=== PATIENT | female | born 1930 | race Caucasian/White ===

== ENCOUNTER 2017-04-25 10:22 | Emergency (ER) | payer OTHER, MEDICARE, BC ==
[~2017-04-25] VITALS: Ht 152.4 cm; Wt 45.4 kg
[~2017-04-25 10:22] MED LIST: AMOXICILLIN500 MG PO; ANTIVERT25 MG PO; ASPIR 8181 MG PO; ASPIRIN325 MG PO; CIPRO500 MG PO; CIPROFLOXACIN500 MG PO; PREDNISONE5 MG PO; PREMARIN V0.625 MG/G VG; VITAMIN B12 IM
== END 2017-04-25 13:29 | disposition home or self-care (01) ==
LOC: ED 10:22
DX: S01.01XA Laceration without foreign body of scalp, initial encounter (principal); S00.83XA Contusion of other part of head, initial encounter; Z23 Encounter for immunization; Z88.2 Allergy status to sulfonamides; Z88.0 Allergy status to penicillin; Z88.1 Allergy status to other antibiotic agents; Z79.82 Long term (current) use of aspirin; Z79.899 Other long term (current) drug therapy; V47.9XXA Unspecified car occupant injured in collision with fixed or stationary object in traffic accident, initial encounter; Y93.89 Activity, other specified; Y92.89 Other specified places as the place of occurrence of the external cause; Y99.8 Other external cause status

== ENCOUNTER 2017-04-30 09:24 | Emergency (ER) | payer MEDICARE, BC ==
[~2017-04-30] VITALS: Ht 149.8 cm; Wt 52.2 kg
== END 2017-04-30 10:29 | disposition home or self-care (01) ==
LOC: ED 09:24
DX: S01.01XD Laceration without foreign body of scalp, subsequent encounter (principal); Z98.890 Other specified postprocedural states; Z79.82 Long term (current) use of aspirin; Z79.899 Other long term (current) drug therapy; Z88.0 Allergy status to penicillin; Z88.2 Allergy status to sulfonamides; Z88.1 Allergy status to other antibiotic agents; V49.59XD Passenger injured in collision with other motor vehicles in traffic accident, subsequent encounter

== ENCOUNTER 2017-07-29 20:53 | Inpatient (IN) | payer MEDICARE, BC ==
[~2017-07-29] VITALS: Ht 149.8 cm; Wt 46.8 kg
--- NOTE | ~2017-07-29 | CON ---
[place], [place] REPORT OF CONSULTATION NAME: FABIAN ARCHIBALD UNIT #: [id number] ROOM: 421 DOCTOR: AMANDA SMITHGUICHO BIRTHDATE: [birth year] DOS: 07/30/2017 GASTROENDOSCOPIC CONSULTATION HISTORY OF PRESENT ILLNESS: An 87-year-old patient who has presented with multiple issues among which has been abdominal pain and finding of abnormal LFTs and pancreatitis. Panel of blood work done. Her lactic acid was 1.1. CBC differential, white blood cell was 12, H and H of 13 and 40 with platelet count of 244. INR was 1.0, PT and PTT within normal limits. CPK-MB normal. Comprehensive metabolic panel: BUN 15 and creatinine 1.04, GFR greater than 60. Electrolytes were balanced. Liver function tests, GOT and GPT 380 and 270, alkaline phosphatase of 316, with bilirubin of 2.3. Troponin within normal limits. Amylase and lipase elevated, lipase of 4198 and amylase of 158 noticed. Chest x-ray, no acute consolidation identified. 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 Abnormal LFTs of course was noticed. Suspected hepatic steatosis and diverticulosis on CT scan noticed. Troponin remains normal. CBC differential normal. 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 MRCP was done, suspected to ____ gallstone was noticed. However, this report does not match the findings of pancreatitis. PAST MEDICAL HISTORY: Associated with systemic hypertension, chronic urinary tract infection, and hyperlipidemia. Hepatitis B diagnosed in 1988, untreated. History of atrial fibrillation, on aspirin. PAST SURGICAL HISTORY: Labioplasty, cataract, and ureteral repair. SOCIAL HISTORY: Nonsmoker, nonalcohol consumer. FAMILY HISTORY: Noncontributory. ALLERGIES: SULFA, PENICILLIN, AMOXICILLIN, CLAVULANIC ACID. HOME MEDICATIONS: Aspirin 325 p.r.n. apparently. We are not sure of definitive timing she has been on except the past 48 hours. REVIEW OF SYSTEMS: HEENT: Denies double vision, blurred vision. RESPIRATORY: Denies acute shortness of breath. CARDIOVASCULAR: Denies acute chest pain. DIGESTIVE SYSTEM: Abdominal pain, right upper quadrant pain. PHYSICAL EXAMINATION: VITAL SIGNS: Stable. HEENT: Head, normocephalic, nontraumatic. Mouth and buccal mucosa benign. NECK: Supple, no thyromegaly, no cervical lymphadenopathy. CHEST: Symmetric anatomy, equal expansion. No wheeze, no rhonchi. HEART: Atrial fibrillation, moderate ventricular response. No gallop, no murmur. ABDOMEN: Soft. No hepato-organomegaly. Bowel sounds present. Nonspecific [place], [place] REPORT OF CONSULTATION NAME: FABIAN ARCHIBALD UNIT #: [id number] ROOM: 421 DOCTOR: GUICHO PATEL MD BIRTHDATE: [birth year] tenderness in right upper quadrant. EXTREMITIES: No cyanosis, no pedal edema. NEUROLOGIC: Alert, oriented to time, place, and person. IMPRESSION: Abnormal liver function test with elevation of amylase and lipase with associated right upper quadrant pain with leukocytosis of 12,000, abnormal LFTs and elevation of bilirubin to two-point plus signifying possible gallstone pancreatitis or a missed choledocholithiasis or possibility of a passed gallstone pancreatitis all has to be in the differential. On the other hand, CT scan of the abdomen showed heterogeneous liver. We have to be considering old history of hepatitis B and compromising in that regard and has to be in consideration. Otherwise, history of systemic hypertension, worsening gallbladder, and basic studies otherwise as identified. PLAN AND DISCUSSION: Due to the symptomatology of the patient's right upper quadrant pain, leukocytosis, lipase of greater than 4000, and elevated amylase. All these factors signifies the importance of further investigation, going to organize an ERCP tonight to make sure we do not have missed obstructive pathology, i.e., ampullary carcinoma or otherwise. Workup in progress. Case has been discussed with the daughter and complexity of the procedure and expected ERCP has been discussed with them. Platelets are going to be reversed with platelet transfusion due to the fact that she has been on aspirin 325 mg daily and this is done due to the fact that we may need to access the common duct through papillotomy. GUICHO PATEL MD CM:CONSTR:REPORT OF CONSULTATION 1727 07/31/17 0333 interface
--- NOTE | ~2017-07-29 | O ---
[place], [place] OPERATIVE NOTE NAME: FABIAN ARCHIBALD UNIT #: [id number] ROOM: 421 DOCTOR: GUICHO PATEL MD BIRTHDATE: [birth year] DOS: 07/30/2017 INDICATIONS: The patient is an 87-year-old who has presented with a chief complaint of pancreatitis, abnormal LFTs, leukocytosis initially of 12,000, elevation of lipase at the time of admission to 4198, and amylase of 158, both elevated and abnormal liver function test. PROCEDURE: Today's procedure part of investigation is ERCP and precut papillotomy. PREMEDICATION: Propofol by Anesthesia. SCOPE: Olympus side-viewing duodenoscope. REPORT: After putting the patient in left lateral position and application of lubricant to the scope, the scope was introduced. Thereafter, under direct visualization, advanced through the length of esophagus into gastric pouch into the duodenum. A very small papilla was identified. High grade papillary stenosis has not even allowed the guidewire to be negotiated. However, with appropriate technique and maneuvers, we were able to negotiate the cannula tip to the opening and guidewire was advanced and minimal injection of dye reveals pancreatic duct, which was not dilated and within normal limit. Precut papillotomy was performed to access the common duct; however, is impractical. No common duct was accessed. Therefore, after multiple tries, the patient extubated, and tolerated the procedure well. IMPRESSION: Endoscopic retrograde cholangiopancreatography, precut papillotomy, normal pancreatic duct. PLAN AND DISCUSSION: Labs results tomorrow morning. IV hydration. Follow up daily. GUICHO PATEL MD CM:OPRECORD:OPERATIVE NOTE [id number] GUICHO PATEL MD 07/30/171921 interface
--- NOTE | ~2017-07-29 | PR ---
[place], [place] PROGRESS NOTE NAME: FABIAN ARCHIBALD UNIT #: [id number] ROOM: 421 DOCTOR: GUICHO PATEL MD BIRTHDATE: [birth year] DOS: 08/01/2017 HISTORY OF PRESENT ILLNESS: The patient has presented 87 years old with initial chief complaint of abdominal pain, abnormal liver function test and pancreatitis was suspected to have gallstone pancreatitis, underwent ERCP, precut papillotomy. Her LFTs significantly improved and today's labs shows electrolytes, potassium 3.3, has been addressed. Bilirubin from 2.3 has dropped to 1.1, GOT of 52, alkaline phosphatase dropped from 300-206 and ALT of 105, lipase has normalized. CBC differential, white blood cell 8.9, H and H of 12 and 39. Differential within normal limits. She has had a bowel movement today. The patient has had solid food lunch and has tolerated eggs and toast lunch. PAST MEDICAL HISTORY: Hypertension, hyperlipidemia, urinary tract infection, history of fibrillation all recognized. REVIEW OF SYSTEMS: HEENT: Denies double vision, blurred vision. RESPIRATORY: Denies shortness of breath. CARDIOVASCULAR: Denies chest pain. DIGESTIVE SYSTEM: No hematemesis, no hematochezia. PHYSICAL EXAMINATION: GENERAL: Frail patient. VITAL SIGNS: Stable. HEENT: Head normocephalic, nontraumatic. Mouth and buccal mucosa benign. NECK: Supple, no thyromegaly, no cervical lymphadenopathy. CHEST: Symmetric anatomy, equal expansion. No wheeze, no rhonchi. HEART: Atrial fibrillation, moderate ventricular response. ABDOMEN: Soft. No hepato-organomegaly. EXTREMITIES: Dry, warm. No distress. NEUROLOGIC: Alert and oriented. IMPRESSION: Abnormal liver function tests, gallstone pancreatitis history, status post ERCP, papillotomy history. PLAN AND DISCUSSION: Resolution of pancreatitis, improvement of LFTs noticed, work in progress. Regular diet. Activity as tolerated. Radiologic studies have been reviewed. A sonographic study of liver and MRCP all has been recognized. [place], [place] PROGRESS NOTE NAME: FABIAN ARCHIBALD UNIT #: [id number] ROOM: 421 DOCTOR: GUICHO PATEL MD BIRTHDATE: [birth year] GUICHO PATEL MD CM:ANDREY 2030 GUICHO PATEL MD 08/02/17 0124 interface
[2017-07-29 20:58] VITALS: BP 169/96
[2017-07-29 21:19] LABS: BASO % 0.2 % (0.0-1.0); EOS % 0.2 % (1.0-4.0); HEMATOCRIT 40.6 % (37.0-47.0); HEMOGLOBIN 13.3 g/dl (12.0-16.0); LYMPH # 0.5 10*3/uL (1.3-4.4); MEAN CELL VOLUME 86.2 fl (81.0-99.0); MEAN CORPUSCULAR HGB 28.2 pg (27.0-31.0); MEAN CORPUSCULAR HGB CONC 32.8 g/dl (33.0-37.0); MONO # 0.8 10*3/uL (0.1-1.0); MONO % 6.6 % (3.0-9.0); NEUT # 10.9 10*3/uL (2.3-7.9); NEUT % 87.9 % (47.0-73.0); PLATELET COUNT AUTOMATED 244 10*3/uL (130-400); RED BLOOD COUNT 4.71 10*6/uL (4.10-5.10); RED CELL DISTRI WIDTH 13.9 % (0-14.5); WHITE BLOOD COUNT 12.4 10*3/uL (4.8-10.8)
[2017-07-29 21:35] LABS: CKMB 0.8 ng/ml (0.5-3.6)
[2017-07-29 21:36] LABS: ALBUMIN 3.6 gm/dl (3.1-4.5); ALKALINE PHOSPHATASE 316 U/L (45-117); BUN 15 mg/dl (7-24); CHLORIDE 94 mmol/L (98-107); CREATININE 1.04 mg/dL (0.55-1.02); SGOT/AST 380 IU/L (3-35); SGPT/ALT 276 U/L (12-78); SODIUM 131 mmol/L (136-145); TOTAL PROTEIN 7.5 gm/dL (6.4-8.2)
[2017-07-29 21:37] LABS: TROPONIN I < 0.015 ng/ml (<0.045)
[2017-07-29 21:42] LABS: LIPASE 4198 U/L (73-393)
[2017-07-29 21:44] VITALS: BP 166/91
[2017-07-29 22:24] VITALS: BP 154/81
[2017-07-29 23:52] VITALS: BP 175/98
[2017-07-30] VITALS (13 sets, daily range): BP systolic 96–158; BP diastolic 62–98
[2017-07-30 02:05] LABS: BILIRUBIN NEGATIVE (NEGATIVE); BLOOD NEGATIVE (NEGATIVE); CLARITY CLEAR (CLEAR); COLOR YELLOW (YELLOW); GLUCOSE NEGATIVE (NEGATIVE); KETONE NEGATIVE (NEGATIVE); LEUKO ESTERASE 1+ (NEGATIVE); NITRITE NEGATIVE (NEGATIVE); PH 6.5 (5.0-9.0); SPECIFIC GRAVITY <= 1.005 (1.005-1.030)
[2017-07-30 02:10] LABS: WBC 21-30 wbc/hpf (0-5)
[2017-07-30 02:11] LABS: YEAST TRACE
[2017-07-30 06:21] LABS: ALBUMIN 2.7 gm/dl (3.1-4.5); ALKALINE PHOSPHATASE 239 U/L (45-117); BUN 11 mg/dl (7-24); CHLORIDE 103 mmol/L (98-107); CHOLESTEROL 162 mg/dL (<200); CREATININE 0.93 mg/dL (0.55-1.02); HDL CHOLESTEROL 73 mg/dl (40-60); LDL CHOLESTEROL 82 mg/dL (9-159); PHOSPHOROUS 3.5 mg/dL (2.5-4.9); POTASSIUM 4.4 mmol/L (3.5-5.1); SGOT/AST 182 IU/L (3-35); SGPT/ALT 189 U/L (12-78); SODIUM 135 mmol/L (136-145); TOTAL PROTEIN 5.9 gm/dL (6.4-8.2); TRIGLYCERIDES 36 mg/dl (<150); VLDL CHOLESTEROL 7 mg/dL (6-40)
[2017-07-30 06:39] LABS: BASO % 0.1 % (0.0-1.0); LYMPH # 0.8 10*3/uL (1.3-4.4); MEAN CORPUSCULAR HGB 27.8 pg (27.0-31.0); MEAN CORPUSCULAR HGB CONC 31.6 g/dl (33.0-37.0); MEAN PLATELET VOLUME 9.8 fl (9.6-12.3); MONO # 0.5 10*3/uL (0.1-1.0); MONO % 5.4 % (3.0-9.0); NEUT # 8.1 10*3/uL (2.3-7.9); NEUT % 85.4 % (47.0-73.0); PLATELET COUNT AUTOMATED 196 10*3/uL (130-400); RED BLOOD COUNT 3.92 10*6/uL (4.10-5.10); RED CELL DISTRI WIDTH 14.2 % (0-14.5); WHITE BLOOD COUNT 9.5 10*3/uL (4.8-10.8)
[2017-07-30 06:43] LABS: HEMATOCRIT 34.5 % (37.0-47.0); HEMOGLOBIN 10.9 g/dl (12.0-16.0)
[2017-07-30 08:31] LABS: VITAMIN D, 25-HYDROXY 17.1 ng/mL (30-100)
[2017-07-31] VITALS: BP 130/70
[2017-07-31 06:11] LABS: ALBUMIN 2.7 gm/dl (3.1-4.5); BILIRUBIN, DIRECT 1.3 mg/dL (0.0-0.2); CREATININE 1.07 mg/dL (0.55-1.02); POTASSIUM 4.3 mmol/L (3.5-5.1)
[2017-07-31 06:12] LABS: HEPATITIS B SURFACE AG Negative (Negative); HEPATITIS C VIRUS ANTIBODY <0.1 s/co (0.0-0.9)
[2017-07-31 06:31] LABS: BASO % 0.2 % (0.0-1.0); HEMATOCRIT 34.8 % (37.0-47.0); LYMPH # 0.6 10*3/uL (1.3-4.4); LYMPH % 10.6 % (27.0-41.0); MEAN CELL VOLUME 88.8 fl (81.0-99.0); MEAN CORPUSCULAR HGB 28.1 pg (27.0-31.0); MEAN CORPUSCULAR HGB CONC 31.6 g/dl (33.0-37.0); MEAN PLATELET VOLUME 10.3 fl (9.6-12.3); MONO # 0.3 10*3/uL (0.1-1.0); MONO % 4.9 % (3.0-9.0); NEUT # 4.4 10*3/uL (2.3-7.9); NEUT % 83.3 % (47.0-73.0); RED BLOOD COUNT 3.92 10*6/uL (4.10-5.10); RED CELL DISTRI WIDTH 14.8 % (0-14.5); WHITE BLOOD COUNT 5.3 10*3/uL (4.8-10.8)
[2017-07-31 06:33] LABS: PLATELET COUNT AUTOMATED 261 10*3/uL (130-400)
[2017-07-31 08:00] VITALS: BP 156/60
[2017-07-31 12:00] VITALS: BP 148/79
[2017-07-31 16:00] VITALS: BP 150/69
[2017-07-31 20:00] VITALS: BP 152/69
[2017-08-01] VITALS (7 sets, daily range): BP systolic 140–186; BP diastolic 74–92
[2017-08-01 06:19] LABS: BASO # 0.1 10*3/uL (0.0-0.1); BASO % 0.6 % (0.0-1.0); EOS % 0.3 % (1.0-4.0); HEMATOCRIT 39.1 % (37.0-47.0); HEMOGLOBIN 12.5 g/dl (12.0-16.0); LYMPH # 1.2 10*3/uL (1.3-4.4); LYMPH % 13.1 % (27.0-41.0); MEAN CELL VOLUME 88.3 fl (81.0-99.0); MEAN CORPUSCULAR HGB 28.2 pg (27.0-31.0); MEAN PLATELET VOLUME 9.7 fl (9.6-12.3); MONO # 0.6 10*3/uL (0.1-1.0); MONO % 6.9 % (3.0-9.0); NEUT % 77.8 % (47.0-73.0); PLATELET COUNT AUTOMATED 324 10*3/uL (130-400); RED BLOOD COUNT 4.43 10*6/uL (4.10-5.10); RED CELL DISTRI WIDTH 14.7 % (0-14.5); WHITE BLOOD COUNT 8.9 10*3/uL (4.8-10.8)
[2017-08-01 06:29] LABS: ALBUMIN 2.9 gm/dl (3.1-4.5); CREATININE 1.11 mg/dL (0.55-1.02); TOTAL PROTEIN 6.6 gm/dL (6.4-8.2)
[2017-08-01 06:47] LABS: POTASSIUM 3.3 mmol/L (3.5-5.1)
[2017-08-02] VITALS (8 sets, daily range): BP systolic 107–162; BP diastolic 74–102
[2017-08-02 06:54] LABS: BASO # 0.1 10*3/uL (0.0-0.1); BASO % 0.9 % (0.0-1.0); EOS % 0.5 % (1.0-4.0); HEMATOCRIT 38.5 % (37.0-47.0); HEMOGLOBIN 12.4 g/dl (12.0-16.0); LYMPH # 1.2 10*3/uL (1.3-4.4); LYMPH % 15.4 % (27.0-41.0); MEAN CELL VOLUME 87.1 fl (81.0-99.0); MEAN CORPUSCULAR HGB 28.1 pg (27.0-31.0); MEAN CORPUSCULAR HGB CONC 32.2 g/dl (33.0-37.0); MEAN PLATELET VOLUME 9.6 fl (9.6-12.3); MONO # 0.6 10*3/uL (0.1-1.0); NEUT # 5.9 10*3/uL (2.3-7.9); NEUT % 74.3 % (47.0-73.0); PLATELET COUNT AUTOMATED 313 10*3/uL (130-400); RED BLOOD COUNT 4.42 10*6/uL (4.10-5.10); WHITE BLOOD COUNT 7.9 10*3/uL (4.8-10.8)
[2017-08-02 07:24] LABS: CHLORIDE 104 mmol/L (98-107); POTASSIUM 4.1 mmol/L (3.5-5.1); SODIUM 139 mmol/L (136-145)
[2017-08-02 07:47] LABS: ALKALINE PHOSPHATASE 179 U/L (45-117); BUN 10 mg/dl (7-24); CREATININE 0.96 mg/dL (0.55-1.02); LIPASE 158 U/L (73-393); PHOSPHOROUS 1.9 mg/dL (2.5-4.9); SGOT/AST 38 IU/L (3-35); SGPT/ALT 80 U/L (12-78); TOTAL PROTEIN 6.5 gm/dL (6.4-8.2)
[2017-08-03 00:17] VITALS: BP 128/72
[2017-08-03 08:00] VITALS: BP 154/85
[2017-08-03 08:01] LABS: BASO # 0.1 10*3/uL (0.0-0.1); BASO % 0.6 % (0.0-1.0); EOS # 0.1 10*3/uL (0.0-0.4); EOS % 1.5 % (1.0-4.0); HEMATOCRIT 38.3 % (37.0-47.0); HEMOGLOBIN 12.4 g/dl (12.0-16.0); LYMPH # 1.5 10*3/uL (1.3-4.4); LYMPH % 18.1 % (27.0-41.0); MEAN CELL VOLUME 86.7 fl (81.0-99.0); MEAN CORPUSCULAR HGB 28.1 pg (27.0-31.0); MEAN CORPUSCULAR HGB CONC 32.4 g/dl (33.0-37.0); MEAN PLATELET VOLUME 9.3 fl (9.6-12.3); MONO # 0.6 10*3/uL (0.1-1.0); MONO % 7.8 % (3.0-9.0); NEUT # 5.9 10*3/uL (2.3-7.9); NEUT % 71.5 % (47.0-73.0); PLATELET COUNT AUTOMATED 299 10*3/uL (130-400); RED BLOOD COUNT 4.42 10*6/uL (4.10-5.10); RED CELL DISTRI WIDTH 14.6 % (0-14.5); WHITE BLOOD COUNT 8.2 10*3/uL (4.8-10.8)
[2017-08-03 08:21] LABS: ALBUMIN 2.9 gm/dl (3.1-4.5); ALKALINE PHOSPHATASE 156 U/L (45-117); BUN 11 mg/dl (7-24); CHLORIDE 106 mmol/L (98-107); CREATININE 0.94 mg/dL (0.55-1.02); PHOSPHOROUS 3.2 mg/dL (2.5-4.9); POTASSIUM 4.1 mmol/L (3.5-5.1); SGOT/AST 25 IU/L (3-35); SGPT/ALT 62 U/L (12-78); SODIUM 140 mmol/L (136-145); TOTAL PROTEIN 6.3 gm/dL (6.4-8.2)
[2017-08-03] MEDS ORDERED: VITAMIN D-32000 UNIT PO (09:58)
[2017-08-03] MEDS ORDERED: CALCIUM CARBON200 MG PO (09:58)
[2017-08-03] MEDS ORDERED: LISINOPRIL10 M1 PO (09:58)
[2017-08-03] MEDS ORDERED: CEFUROXIME AXE250 MG PO (09:59)
[2017-08-03 12:00] VITALS: BP 153/89
== END 2017-08-03 15:10 | disposition home or self-care (01) | DRG 871 ==
LOC: ED 20:53 → 4E 07-30 01:02 → EDHOLD 07-30 01:02 → 4E 07-30 01:31
PROVIDERS: Emergency Medicine; Family Medicine; Internal Medicine Hospice and Palliative Medicine; Registered Nurse; Student in an Organized Health Care Education/Training Program
PROC: 0FJD8ZZ Inspection of Pancreatic Duct, Via Natural or Artificial Opening Endoscopic (ICD-10-PCS; principal; 2017-07-30)
PROC: 0F798ZZ Dilation of Common Bile Duct, Via Natural or Artificial Opening Endoscopic (ICD-10-PCS; principal; 2017-07-30)
DX: A41.9 Sepsis, unspecified organism (principal); K85.90 Acute pancreatitis without necrosis or infection, unspecified; E87.1 Hypo-osmolality and hyponatremia; E44.1 Mild protein-calorie malnutrition; I48.0 Paroxysmal atrial fibrillation; N18.3 Chronic kidney disease, stage 3 (moderate); E87.8 Other disorders of electrolyte and fluid balance, not elsewhere classified; B19.10 Unspecified viral hepatitis B without hepatic coma; N39.0 Urinary tract infection, site not specified; K80.80 Other cholelithiasis without obstruction; D64.9 Anemia, unspecified; K82.8 Other specified diseases of gallbladder; R74.0 Nonspecific elevation of levels of transaminase and lactic acid dehydrogenase [LDH]; D72.810 Lymphocytopenia; R65.20 Severe sepsis without septic shock; I10 Essential (primary) hypertension; E78.5 Hyperlipidemia, unspecified; E55.9 Vitamin D deficiency, unspecified; I12.9 Hypertensive chronic kidney disease with stage 1 through stage 4 chronic kidney disease, or unspecified chronic kidney disease; K57.30 Diverticulosis of large intestine without perforation or abscess without bleeding; K76.0 Fatty (change of) liver, not elsewhere classified; Z87.440 Personal history of urinary (tract) infections; Z88.1 Allergy status to other antibiotic agents; Z88.0 Allergy status to penicillin; Z88.2 Allergy status to sulfonamides; Z83.6 Family history of other diseases of the respiratory system; Z79.82 Long term (current) use of aspirin; Z68.20 Body mass index [BMI] 20.0-20.9, adult

== ENCOUNTER 2018-03-19 18:14 | Inpatient (IN) | payer MEDICARE, BC ==
[~2018-03-19] VITALS: Ht 144.8 cm; Wt 39.1 kg
--- NOTE | ~2018-03-19 | EKG ---
[place], [place] ELECTROCARDIOGRAM REPORT NAME: FABIAN ARCHIBALD UNIT #: [id number] ROOM: 503 DOCTOR: BRITTNEE DRAFT REPORT BIRTHDATE: [birth year] [facility] Test Date: 2018-03-19 Test Time: 19:40:43 Pat Name: FABIAN ARCHIBALD Department: Room: 503 Gender: F Dietary Worker: Tabby Crawley : 1930 Requested By: SYEDA SARAH Order Number: [id number] Reading MD: Jeff Fraser MD Measurements Intervals [place] Rate: 96 P: 40 PA: 126 QRS: 23 QRSD: 72 T: 3 QT: 351 QTc: 444 Interpretive Statements Sinus rhythm Electronically Signed On 03-20-2018 14:49:50 PST by Jeff Fraser MD CM:EKGRPT:ELECTROCARDIOGRAM REPORT [id number] SYEDA BARTON DRAFT REPORT SYEDA SARAH DO
[~2018-03-19 18:14] MED LIST changes: +CALCIUM CARBON200 MG PO; +CEFUROXIME AXE250 MG PO; +LISINOPRIL10 M1 PO; +VITAMIN D-32000 UNIT PO
[2018-03-19 18:18] VITALS: BP 171/92
[2018-03-19 18:49] LABS: BASO % 0.5 % (0.0-1.0); EOS % 0.2 % (1.0-4.0); HEMATOCRIT 36.9 % (37.0-47.0); HEMOGLOBIN 12.1 g/dl (12.0-16.0); LYMPH # 1.3 10*3/uL (1.3-4.4); LYMPH % 14.8 % (27.0-41.0); MEAN CELL VOLUME 85.2 fl (81.0-99.0); MEAN CORPUSCULAR HGB 27.9 pg (27.0-31.0); MEAN CORPUSCULAR HGB CONC 32.8 g/dl (33.0-37.0); MEAN PLATELET VOLUME 8.4 fl (9.6-12.3); MONO # 0.7 10*3/uL (0.1-1.0); MONO % 8.6 % (3.0-9.0); NEUT # 6.4 10*3/uL (2.3-7.9); NEUT % 75.4 % (47.0-73.0); PLATELET COUNT AUTOMATED 361 10*3/uL (130-400); RED BLOOD COUNT 4.33 10*6/uL (4.10-5.10); WHITE BLOOD COUNT 8.5 10*3/uL (4.8-10.8)
[2018-03-19 19:04] LABS: BILIRUBIN NEGATIVE (NEGATIVE); BLOOD NEGATIVE (NEGATIVE); CLARITY CLEAR (CLEAR); COLOR YELLOW (YELLOW); GLUCOSE NEGATIVE (NEGATIVE); KETONE NEGATIVE (NEGATIVE); LEUKO ESTERASE TRACE (NEGATIVE); NITRITE NEGATIVE (NEGATIVE); UROBILINOGEN 0.2 E.U./dl (0.2-1.0)
[2018-03-19 19:05] LABS: ALBUMIN 2.6 gm/dl (3.1-4.5); CREATININE 1.26 mg/dL (0.55-1.02); POTASSIUM 3.9 mmol/L (3.5-5.1); TOTAL PROTEIN 7.7 gm/dL (6.4-8.2)
[2018-03-19 19:10] LABS: BACTERIA 2+; FINE GRANULAR CAST 0-2
[2018-03-19 19:23] VITALS: BP 154/93
[2018-03-19 21:16] VITALS: BP 156/93
[2018-03-19 21:57] VITALS: BP 160/90
--- NOTE | 2018-03-19 21:57 | NUR ---
A 87, admitted to 5E, under the services of DONY Coker DO with a diagnosis of HYPONATREMIA, ABDOMINA PAIN, DEHYDRATION. Chief complaint is ABDOMINAL PAIN. Patient arrived via bed from ER. Monitor applied. Initial assessment completed. Vital signs taken and recorded. DONY COKRE DO notified of admission to the unit. Orders received. See assessment for past medical history, medications and allergies. Patient and/or family oriented to unit. [facility] visitation policy reviewed. Clothing/patient valuable form completed. DEBORA CONTEH
--- NOTE | 2018-03-19 22:29 | NUR ---
PATIENT STATES THAT SHE TAKES NO HOME MEDICATIONS.
[2018-03-20] VITALS: BP 158/86
--- NOTE | 2018-03-20 02:52 | NUR ---
PATIENT RESTING IN BED WITH EYES CLOSED. RESPIRATIONS ARE EASY AND REGULAR. NO DISTRESS IS NOTED. CALL LIGHT IS WITHIN REACH. WILL CONTINUE TO MONITOR.
[2018-03-20 06:42] LABS: BASO % 0.5 % (0.0-1.0); EOS % 0.1 % (1.0-4.0); HEMATOCRIT 33.7 % (37.0-47.0); HEMOGLOBIN 11.1 g/dl (12.0-16.0); LYMPH # 0.8 10*3/uL (1.3-4.4); LYMPH % 10.7 % (27.0-41.0); MEAN CELL VOLUME 85.3 fl (81.0-99.0); MEAN CORPUSCULAR HGB 28.1 pg (27.0-31.0); MEAN CORPUSCULAR HGB CONC 32.9 g/dl (33.0-37.0); MEAN PLATELET VOLUME 8.6 fl (9.6-12.3); MONO # 0.6 10*3/uL (0.1-1.0); MONO % 8.3 % (3.0-9.0); NEUT # 6.1 10*3/uL (2.3-7.9); NEUT % 79.6 % (47.0-73.0); PLATELET COUNT AUTOMATED 311 10*3/uL (130-400); RED BLOOD COUNT 3.95 10*6/uL (4.10-5.10); WHITE BLOOD COUNT 7.7 10*3/uL (4.8-10.8)
--- NOTE | 2018-03-20 07:10 | NUR ---
BEDSIDE REPORT OBTAINED FROM FRANK-ANDRA. PATIENT APPEARS TO BE ASLEEP, EYES CLOSED. NO S&S OF DISTRESS NOTED, RESP ARE ERND ON ROOM AIR. BED IS LOCKED IN LOWEST POSITION. CALL LIGHT LEFT WITHIN REACH.
[2018-03-20 07:13] LABS: ALBUMIN 2.1 gm/dl (3.1-4.5); ALKALINE PHOSPHATASE 109 U/L (45-117); BUN 11 mg/dl (7-24); CHLORIDE 105 mmol/L (98-107); CHOLESTEROL 148 mg/dL (<200); CREATININE 0.98 mg/dL (0.55-1.02); HDL CHOLESTEROL 46 mg/dl (40-60); LDL CHOLESTEROL 91 mg/dL (9-159); PHOSPHOROUS 3.1 mg/dL (2.5-4.9); POTASSIUM 3.9 mmol/L (3.5-5.1); SGOT/AST 14 IU/L (3-35); SGPT/ALT 15 U/L (12-78); SODIUM 137 mmol/L (136-145); TOTAL PROTEIN 6.2 gm/dL (6.4-8.2); TRIGLYCERIDES 54 mg/dl (<150); VLDL CHOLESTEROL 11 mg/dL (6-40)
[2018-03-20 07:19] LABS: FREE T4 1.27 ng/dl (0.76-1.46)
--- NOTE | 2018-03-20 07:35 | NUR ---
INFOMRED THIS NURSE THAT HE HAD ALREADY CONSULTED/TALKED AND THAT HE DID NOT NEED TO BE CALLED BY US
[2018-03-20 07:54] LABS: VITAMIN D, 25-HYDROXY 18.3 ng/mL (30-100)
[2018-03-20 08:00] VITALS: BP 150/86
--- NOTE | 2018-03-20 08:00 | NUR ---
Hep Lock discontinued, RIGHT WRIST. Site symptomatic, PULLED OUT BY PATIENT. Pressure applied. Sterile dressing applied. DMITRIY STANLEY
--- NOTE | 2018-03-20 08:05 | NUR ---
IV started left hand with #22 angiocath after 0 attempts. The IV site was prepped with Chloraprep. Heparin lock attached. Sterile dressing applied. Patient tolerated precedure well. Procedure performed according to [facility] policy & procedure. DMITRIY STANLEY
[2018-03-20 12:00] VITALS: BP 127/72
[2018-03-20] MEDS ORDERED: ZOFRAN4 MG PO (15:17)
[2018-03-20 16:00] VITALS: BP 131/75
--- NOTE | 2018-03-20 17:55 | NUR ---
Discharge instructions reviewed with patient. Patient receptive and verbalizes understanding. Follow-up care TO BE arranged BY PATIENT. Written instructions given to patient. IV CATHETER RMOVED FROM LEFT HAND. DMITRIY STANLEY
== END 2018-03-20 17:55 | disposition home or self-care (01) | DRG 444 ==
LOC: ED 18:14 → EDHOLD 21:00 → 5E 21:25
PROVIDERS: Emergency Medicine; Internal Medicine; Student in an Organized Health Care Education/Training Program; ADMIT Internal Medicine
DX: K82.8 Other specified diseases of gallbladder (principal); E43 Unspecified severe protein-calorie malnutrition; N17.0 Acute kidney failure with tubular necrosis; E87.1 Hypo-osmolality and hyponatremia; E86.0 Dehydration; K57.30 Diverticulosis of large intestine without perforation or abscess without bleeding; I12.9 Hypertensive chronic kidney disease with stage 1 through stage 4 chronic kidney disease, or unspecified chronic kidney disease; I48.0 Paroxysmal atrial fibrillation; N18.3 Chronic kidney disease, stage 3 (moderate); E78.2 Mixed hyperlipidemia; K76.0 Fatty (change of) liver, not elsewhere classified; R73.03 Prediabetes; E53.8 Deficiency of other specified B group vitamins; R74.8 Abnormal levels of other serum enzymes; Z88.0 Allergy status to penicillin; Z68.1 Body mass index [BMI] 19.9 or less, adult; Z88.2 Allergy status to sulfonamides; Z88.1 Allergy status to other antibiotic agents; Z88.8 Allergy status to other drugs, medicaments and biological substances; Z98.42 Cataract extraction status, left eye; Z98.41 Cataract extraction status, right eye; Z82.5 Family history of asthma and other chronic lower respiratory diseases; Z79.82 Long term (current) use of aspirin; Z79.899 Other long term (current) drug therapy

== ENCOUNTER → 2018-04-04 | Outpatient (CLI) | payer MEDICARE, BC ==
[~2018-04-04] MED LIST changes: +ZOFRAN4 MG PO
== END | disposition home or self-care (01) ==
LOC: US 10:06
DX: K82.8 Other specified diseases of gallbladder (principal); R11.0 Nausea

== ENCOUNTER 2020-06-23 15:30 | Inpatient (IN) | payer MEDICARE, BC ==
[~2020-06-23] VITALS: Ht 144.7 cm; Wt 31.3 kg
[2020-06-23 15:30] VITALS: BP 107/64
[2020-06-23 16:24] LABS: ALKALINE PHOSPHATASE 71 U/L (45-117); BUN 37 mg/dl (7-24); CHLORIDE 110 mmol/L (98-107); CPK 129 U/L (26-192); CREATININE 1.57 mg/dL (0.55-1.02); POTASSIUM 4.2 mmol/L (3.5-5.1); SGOT/AST 21 IU/L (3-35); SGPT/ALT 21 U/L (12-78); SODIUM 142 mmol/L (136-145); TOTAL PROTEIN 6.5 gm/dL (6.4-8.2)
[2020-06-23 16:25] LABS: TROPONIN I < 0.015 ng/ml (<0.045)
[2020-06-23 16:29] LABS: ACT PARTIAL THROMBO TIME 26.8 SECONDS (20.0-32.1); INTERNATIONAL NORM RATIO 1.1 (2.0-3.5)
[2020-06-23 16:53] LABS: BILIRUBIN Negative (Negative); BLOOD Trace-Intact (Negative); CLARITY Turbid (Clear); COLOR Yellow (Yellow); GLUCOSE Negative (Negative); KETONE Negative (Negative); LEUKO ESTERASE 3+ (Negative); NITRITE Negative (Negative)
[2020-06-23 16:57] LABS: HEMATOCRIT 24.1 % (37.0-47.0); MEAN CELL VOLUME 125.5 fl (81.0-99.0); MEAN CORPUSCULAR HGB 40.6 pg (27.0-31.0); MEAN CORPUSCULAR HGB CONC 32.4 g/dl (33.0-37.0); MEAN PLATELET VOLUME 10.1 fl (9.6-12.3); RED BLOOD COUNT 1.92 10*6/uL (4.10-5.10); RED CELL DISTRI WIDTH 17.2 % (0-14.5); WHITE BLOOD COUNT 3.8 10*3/uL (4.8-10.8)
[2020-06-23 17:17] LABS: TOTAL CELLS COUNTED 100 #CELLS
[2020-06-23 17:19] LABS: PLATELET SUFFICIENCY NORMAL (NORMAL); SCHISTOCYTES FEW
[2020-06-23 17:21] LABS: PLATELET COUNT AUTOMATED 144 10*3/uL (130-400)
[2020-06-23 17:21] LABS: PH 8.5 (4.5-8.0)
[2020-06-23 17:28] LABS: BACTERIA 4+; EPITHELIAL CELLS 0-2; MUCOUS TRACE; RBC 0-2 rbc/hpf (0-2)
[2020-06-23 18:14] VITALS: BP 118/63
[2020-06-23 19:45] VITALS: BP 110/60
[2020-06-23 22:45] VITALS: BP 129/81
[2020-06-24 07:55] LABS: HEMATOCRIT 22.3 % (37.0-47.0); MEAN CELL VOLUME 125.3 fl (81.0-99.0); MEAN CORPUSCULAR HGB CONC 32.7 g/dl (33.0-37.0); MEAN PLATELET VOLUME 9.7 fl (9.6-12.3); PLATELET COUNT AUTOMATED 149 10*3/uL (130-400); RED BLOOD COUNT 1.78 10*6/uL (4.10-5.10); RED CELL DISTRI WIDTH 17.1 % (0-14.5); WHITE BLOOD COUNT 4.2 10*3/uL (4.8-10.8)
[2020-06-24 08:00] VITALS: BP 104/59
[2020-06-24 08:06] LABS: ACT PARTIAL THROMBO TIME 27.4 SECONDS (20.0-32.1); INTERNATIONAL NORM RATIO 1.2 (2.0-3.5)
[2020-06-24 08:14] LABS: ALBUMIN 2.5 gm/dl (3.1-4.5); CREATININE 1.41 mg/dL (0.55-1.02); TOTAL PROTEIN 5.6 gm/dL (6.4-8.2)
[2020-06-24 08:18] LABS: POTASSIUM 5.4 mmol/L (3.5-5.1)
[2020-06-24 08:52] LABS: TOTAL CELLS COUNTED 100 #CELLS
[2020-06-24 08:53] LABS: OVALOCYTES FEW; PLATELET SUFFICIENCY NORMAL (NORMAL); ROULEAUX SLIGHT; SCHISTOCYTES FEW
[2020-06-24 12:00] VITALS: BP 110/60
[2020-06-24 16:00] VITALS: BP 127/76
[2020-06-25] VITALS: BP 114/69
[2020-06-25 08:00] VITALS: BP 116/77
[2020-06-25 16:00] VITALS: BP 113/56
[2020-06-25 20:28] VITALS: BP 114/91
[2020-06-26] VITALS: BP 106/60
[2020-06-26 06:12] LABS: CREATININE 1.3 mg/dL (0.55-1.02); TOTAL PROTEIN 6.2 gm/dL (6.4-8.2)
[2020-06-26 06:34] LABS: HEMATOCRIT 26.5 % (37.0-47.0); MEAN CELL VOLUME 123.8 fl (81.0-99.0); MEAN CORPUSCULAR HGB 41.6 pg (27.0-31.0); MEAN CORPUSCULAR HGB CONC 33.6 g/dl (33.0-37.0); MEAN PLATELET VOLUME 9.9 fl (9.6-12.3); NUCLEATED RED BLOOD CELL 0.5 % (0.0-0.0); RED BLOOD COUNT 2.14 10*6/uL (4.10-5.10); RED CELL DISTRI WIDTH 16.5 % (0-14.5); WHITE BLOOD COUNT 5.6 10*3/uL (4.8-10.8)
[2020-06-26 06:36] LABS: PLATELET COUNT AUTOMATED 225 10*3/uL (130-400)
[2020-06-26 06:55] LABS: POTASSIUM 3.5 mmol/L (3.5-5.1)
[2020-06-26 07:37] LABS: TOTAL CELLS COUNTED 100 #CELLS
[2020-06-26 07:38] LABS: BURR CELLS FEW; OVALOCYTES FEW; PLATELET SUFFICIENCY NORMAL (NORMAL); ROULEAUX SLIGHT; SCHISTOCYTES FEW
[2020-06-26 08:00] VITALS: BP 144/75
[2020-06-26 16:00] VITALS: BP 112/75
[2020-06-26 20:00] VITALS: BP 97/54
[2020-06-27] VITALS: BP 98/54
[2020-06-27 05:55] LABS: ALBUMIN 2.5 gm/dl (3.1-4.5); ALKALINE PHOSPHATASE 56 U/L (45-117); BUN 41 mg/dl (7-24); CHLORIDE 109 mmol/L (98-107); CREATININE 1.02 mg/dL (0.55-1.02); LDH 255 U/L (84-246); POTASSIUM 3.2 mmol/L (3.5-5.1); SGOT/AST 29 IU/L (3-35); SGPT/ALT 23 U/L (12-78); SODIUM 143 mmol/L (136-145); TOTAL PROTEIN 5.4 gm/dL (6.4-8.2)
[2020-06-27 05:58] LABS: CPK 157 U/L (26-192)
[2020-06-27 06:23] LABS: MEAN CELL VOLUME 122.2 fl (81.0-99.0); MEAN CORPUSCULAR HGB 41.1 pg (27.0-31.0); MEAN CORPUSCULAR HGB CONC 33.6 g/dl (33.0-37.0); MEAN PLATELET VOLUME 9.8 fl (9.6-12.3); PLATELET COUNT AUTOMATED 162 10*3/uL (130-400); RED CELL DISTRI WIDTH 16.3 % (0-14.5); WHITE BLOOD COUNT 2.5 10*3/uL (4.8-10.8)
[2020-06-27 06:57] LABS: BASOPHILS 1 % (0-1); TOTAL CELLS COUNTED 100 #CELLS
[2020-06-27 06:58] LABS: OVALOCYTES FEW; PLATELET SUFFICIENCY NORMAL (NORMAL); ROULEAUX SLIGHT
[2020-06-27 08:00] VITALS: BP 142/68
[2020-06-27 12:00] VITALS: BP 123/83
[2020-06-27 16:00] VITALS: BP 132/68
[2020-06-27 20:00] VITALS: BP 119/58
[2020-06-28] VITALS: BP 130/67
[2020-06-28 06:48] LABS: HEMATOCRIT 24.7 % (37.0-47.0); MEAN CELL VOLUME 124.1 fl (81.0-99.0); MEAN CORPUSCULAR HGB 41.2 pg (27.0-31.0); MEAN CORPUSCULAR HGB CONC 33.2 g/dl (33.0-37.0); MEAN PLATELET VOLUME 9.9 fl (9.6-12.3); PLATELET COUNT AUTOMATED 155 10*3/uL (130-400); RED BLOOD COUNT 1.99 10*6/uL (4.10-5.10); RED CELL DISTRI WIDTH 16.6 % (0-14.5); WHITE BLOOD COUNT 2.6 10*3/uL (4.8-10.8)
[2020-06-28 06:52] LABS: BUN 31 mg/dl (7-24); CREATININE 0.79 mg/dL (0.55-1.02); POTASSIUM 4.3 mmol/L (3.5-5.1); SODIUM 144 mmol/L (136-145)
[2020-06-28 06:54] LABS: CHLORIDE 111 mmol/L (98-107)
[2020-06-28 07:47] LABS: BASOPHILS 2 % (0-1); PLATELET SUFFICIENCY NORMAL (NORMAL); POLYCHROMASIA SLIGHT; SCHISTOCYTES FEW; TOTAL CELLS COUNTED 100 #CELLS
[2020-06-28 08:00] VITALS: BP 106/68
[2020-06-28 16:00] VITALS: BP 144/79
[2020-06-28 20:00] VITALS: BP 94/53
[2020-06-29] VITALS: BP 110/63
[2020-06-29 06:23] LABS: BUN 34 mg/dl (7-24); CHLORIDE 106 mmol/L (98-107); CREATININE 0.83 mg/dL (0.55-1.02); POTASSIUM 3.9 mmol/L (3.5-5.1); SODIUM 141 mmol/L (136-145)
[2020-06-29 06:27] LABS: HEMATOCRIT 26.6 % (37.0-47.0); MEAN CELL VOLUME 122.6 fl (81.0-99.0); MEAN CORPUSCULAR HGB CONC 33.5 g/dl (33.0-37.0); MEAN PLATELET VOLUME 9.8 fl (9.6-12.3); PLATELET COUNT AUTOMATED 181 10*3/uL (130-400); RED BLOOD COUNT 2.17 10*6/uL (4.10-5.10); RED CELL DISTRI WIDTH 16.3 % (0-14.5)
[2020-06-29 06:56] LABS: OVALOCYTES FEW; PLATELET SUFFICIENCY NORMAL (NORMAL); ROULEAUX SLIGHT; TOTAL CELLS COUNTED 100 #CELLS
[2020-06-29 08:00] VITALS: BP 106/66
[2020-06-29 12:00] VITALS: BP 101/73
[2020-06-29 16:00] VITALS: BP 144/52
[2020-06-29 20:00] VITALS: BP 139/54
[2020-06-30] VITALS: BP 101/61
[2020-06-30 05:43] LABS: BUN 30 mg/dl (7-24); CHLORIDE 108 mmol/L (98-107); CREATININE 0.71 mg/dL (0.55-1.02); POTASSIUM 3.8 mmol/L (3.5-5.1); SODIUM 141 mmol/L (136-145)
[2020-06-30 06:05] LABS: HEMATOCRIT 23.9 % (37.0-47.0); MEAN CELL VOLUME 121.3 fl (81.0-99.0); MEAN CORPUSCULAR HGB 40.6 pg (27.0-31.0); MEAN CORPUSCULAR HGB CONC 33.5 g/dl (33.0-37.0); MEAN PLATELET VOLUME 10.1 fl (9.6-12.3); PLATELET COUNT AUTOMATED 142 10*3/uL (130-400); RED BLOOD COUNT 1.97 10*6/uL (4.10-5.10); RED CELL DISTRI WIDTH 16.6 % (0-14.5); WHITE BLOOD COUNT 4.4 10*3/uL (4.8-10.8)
[2020-06-30 07:18] LABS: TOTAL CELLS COUNTED 100 #CELLS
[2020-06-30 07:19] LABS: OVALOCYTES FEW; PLATELET SUFFICIENCY NORMAL (NORMAL); ROULEAUX SLIGHT
[2020-06-30 08:00] VITALS: BP 106/62
[2020-06-30 12:00] VITALS: BP 111/58
[2020-06-30 16:00] VITALS: BP 97/68
[2020-06-30 20:00] VITALS: BP 116/66
[2020-07-01] VITALS: BP 139/72
[2020-07-01 08:00] VITALS: BP 116/64
[2020-07-01 11:11] LABS: HEMATOCRIT 27.4 % (37.0-47.0); MEAN CELL VOLUME 122.9 fl (81.0-99.0); MEAN CORPUSCULAR HGB 40.8 pg (27.0-31.0); MEAN CORPUSCULAR HGB CONC 33.2 g/dl (33.0-37.0); MEAN PLATELET VOLUME 9.8 fl (9.6-12.3); PLATELET COUNT AUTOMATED 154 10*3/uL (130-400); RED BLOOD COUNT 2.23 10*6/uL (4.10-5.10); RED CELL DISTRI WIDTH 17.1 % (0-14.5); WHITE BLOOD COUNT 4.9 10*3/uL (4.8-10.8)
[2020-07-01 11:30] LABS: OVALOCYTES FEW; PLATELET SUFFICIENCY NORMAL (NORMAL); SCHISTOCYTES FEW; TOTAL CELLS COUNTED 100 #CELLS
[2020-07-01 12:00] VITALS: BP 97/70
[2020-07-01] MEDS ORDERED: VENT7GM INH (12:58)
[2020-07-01] MEDS ORDERED: LEVOFLOXACIN750 M2 PO (12:58)
[2020-07-01 13:00] VITALS: BP 102/66
[2020-07-01 16:00] VITALS: BP 114/80
[2020-07-01 20:00] VITALS: BP 105/52
[2020-07-02] VITALS: BP 103/59
[2020-07-02 12:00] VITALS: BP 117/69
[2020-07-02 16:00] VITALS: BP 121/64
== END 2020-07-02 16:25 | DRG 871 ==
LOC: ED 15:30 → 4E 20:22 → EDHOLD 20:22 → 4E 21:19
PROVIDERS: Counselor Professional; Emergency Medicine; Family Medicine; Hospitalist; Internal Medicine; Student in an Organized Health Care Education/Training Program; ADMIT Internal Medicine; ATTEND Internal Medicine
PROC: 0HBRXZZ Excision of Toe Nail, External Approach (ICD-10-PCS; principal; 2020-06-24)
PROC: 0HBRXZZ Excision of Toe Nail, External Approach (ICD-10-PCS; 2020-06-24)
PROC: 0HBRXZZ Excision of Toe Nail, External Approach (ICD-10-PCS; 2020-06-24)
PROC: 0HBRXZZ Excision of Toe Nail, External Approach (ICD-10-PCS; 2020-06-24)
PROC: 0HBRXZZ Excision of Toe Nail, External Approach (ICD-10-PCS; 2020-06-24)
PROC: 0HBRXZZ Excision of Toe Nail, External Approach (ICD-10-PCS; 2020-06-24)
PROC: 0HBRXZZ Excision of Toe Nail, External Approach (ICD-10-PCS; 2020-06-24)
PROC: 0HBRXZZ Excision of Toe Nail, External Approach (ICD-10-PCS; 2020-06-24)
PROC: 0HBRXZZ Excision of Toe Nail, External Approach (ICD-10-PCS; 2020-06-24)
PROC: 0HBRXZZ Excision of Toe Nail, External Approach (ICD-10-PCS; 2020-06-24)
DX: A41.9 Sepsis, unspecified organism (principal); N17.0 Acute kidney failure with tubular necrosis; G93.41 Metabolic encephalopathy; E43 Unspecified severe protein-calorie malnutrition; J69.0 Pneumonitis due to inhalation of food and vomit; N30.01 Acute cystitis with hematuria; Z16.12 Extended spectrum beta lactamase (ESBL) resistance; F02.81 Dementia in other diseases classified elsewhere, unspecified severity, with behavioral disturbance; Z68.1 Body mass index [BMI] 19.9 or less, adult; Z20.822 Contact with and (suspected) exposure to COVID-19; E86.0 Dehydration; R62.7 Adult failure to thrive; D53.9 Nutritional anemia, unspecified; E87.5 Hyperkalemia; K57.90 Diverticulosis of intestine, part unspecified, without perforation or abscess without bleeding; E78.5 Hyperlipidemia, unspecified; R41.9 Unspecified symptoms and signs involving cognitive functions and awareness; K82.8 Other specified diseases of gallbladder; N18.30 Chronic kidney disease, stage 3 unspecified; B35.1 Tinea unguium; I73.9 Peripheral vascular disease, unspecified; I12.9 Hypertensive chronic kidney disease with stage 1 through stage 4 chronic kidney disease, or unspecified chronic kidney disease; G30.9 Alzheimer's disease, unspecified; F39 Unspecified mood [affective] disorder; E55.9 Vitamin D deficiency, unspecified; B96.4 Proteus (mirabilis) (morganii) as the cause of diseases classified elsewhere; Z88.0 Allergy status to penicillin; Z88.2 Allergy status to sulfonamides; Z88.1 Allergy status to other antibiotic agents; Z79.899 Other long term (current) drug therapy; Z82.5 Family history of asthma and other chronic lower respiratory diseases

== ENCOUNTER 2020-07-02 16:22 | Inpatient (IN) | payer MEDICARE, BC ==
[~2020-07-02] VITALS: Ht 144.7 cm; Wt 31.3 kg
[~2020-07-02 16:22] MED LIST changes: +LEVOFLOXACIN750 M2 PO; +VENT7GM INH
[2020-07-02 16:37] VITALS: BP 120/76
[2020-07-02 20:00] VITALS: BP 127/81
[2020-07-03 06:39] LABS: MEAN CELL VOLUME 122.4 fl (81.0-99.0); MEAN CORPUSCULAR HGB 41.8 pg (27.0-31.0); MEAN CORPUSCULAR HGB CONC 34.1 g/dl (33.0-37.0); MEAN PLATELET VOLUME 10.2 fl (9.6-12.3); PLATELET COUNT AUTOMATED 132 10*3/uL (130-400); WHITE BLOOD COUNT 4.4 10*3/uL (4.8-10.8)
[2020-07-03 06:44] LABS: HEMATOCRIT 20.8 % (37.0-47.0)
[2020-07-03 07:45] LABS: PLATELET SUFFICIENCY NORMAL (NORMAL); TOTAL CELLS COUNTED 100 #CELLS
[2020-07-03 07:46] LABS: ALBUMIN 2.3 gm/dl (3.1-4.5); ALKALINE PHOSPHATASE 61 U/L (45-117); BUN 21 mg/dl (7-24); CHLORIDE 109 mmol/L (98-107); CHOLESTEROL 130 mg/dL (<200); CREATININE 0.61 mg/dL (0.55-1.02); HDL CHOLESTEROL 56 mg/dl (40-60); LDL CHOLESTEROL 45 mg/dL (9-159); POTASSIUM 3.6 mmol/L (3.5-5.1); SCHISTOCYTES FEW; SGOT/AST 28 IU/L (3-35); SGPT/ALT 24 U/L (12-78); SODIUM 143 mmol/L (136-145); TOTAL PROTEIN 4.7 gm/dL (6.4-8.2); TRIGLYCERIDES 146 mg/dl (<150); VLDL CHOLESTEROL 29 mg/dL (6-40)
[2020-07-03 07:52] VITALS: BP 112/70
[2020-07-03 08:05] LABS: IRON 58 ug/dL (50-170); TOTAL IRON BINDING CAPACITY 175 ug/dl (250-450)
[2020-07-03 08:20] LABS: VITAMIN D, 25-HYDROXY 16.7 ng/mL (30-100)
[2020-07-03 09:20] LABS: HEMATOCRIT 21.5 % (37.0-47.0); MEAN CELL VOLUME 123.6 fl (81.0-99.0); MEAN PLATELET VOLUME 9.4 fl (9.6-12.3); PLATELET COUNT AUTOMATED 128 10*3/uL (130-400); RED BLOOD COUNT 1.74 10*6/uL (4.10-5.10); RED CELL DISTRI WIDTH 17.3 % (0-14.5); WHITE BLOOD COUNT 3.8 10*3/uL (4.8-10.8)
[2020-07-03 09:38] LABS: OVALOCYTES FEW; PLATELET SUFFICIENCY LOW (NORMAL); SCHISTOCYTES FEW; TOTAL CELLS COUNTED 100 #CELLS
[2020-07-03 20:00] VITALS: BP 107/62
[2020-07-04 07:34] VITALS: BP 110/68
[2020-07-04 09:27] LABS: HEMATOCRIT 23.7 % (37.0-47.0); MEAN CELL VOLUME 124.7 fl (81.0-99.0); MEAN CORPUSCULAR HGB 42.1 pg (27.0-31.0); MEAN CORPUSCULAR HGB CONC 33.8 g/dl (33.0-37.0); MEAN PLATELET VOLUME 9.8 fl (9.6-12.3); PLATELET COUNT AUTOMATED 162 10*3/uL (130-400); RED CELL DISTRI WIDTH 17.2 % (0-14.5); WHITE BLOOD COUNT 4.9 10*3/uL (4.8-10.8)
[2020-07-04 09:45] LABS: SCHISTOCYTES FEW; TOTAL CELLS COUNTED 100 #CELLS
[2020-07-04 09:46] LABS: OVALOCYTES FEW; PLATELET SUFFICIENCY NORMAL (NORMAL)
[2020-07-04 20:00] VITALS: BP 105/59
[2020-07-05 07:09] VITALS: BP 116/66
[2020-07-05 19:00] VITALS: BP 129/63
[2020-07-06 07:42] VITALS: BP 148/66
[2020-07-06 20:00] VITALS: BP 148/70
[2020-07-07 07:19] VITALS: BP 132/68
[2020-07-07 20:00] VITALS: BP 98/58
[2020-07-08 07:03] VITALS: BP 105/65
[2020-07-08 20:00] VITALS: BP 113/79
[2020-07-09 08:02] VITALS: BP 131/53
[2020-07-09 20:00] VITALS: BP 109/72
[2020-07-10 07:32] VITALS: BP 115/57
[2020-07-10 20:00] VITALS: BP 106/64
[2020-07-11 07:12] VITALS: BP 124/64
[2020-07-11] MEDS ORDERED: NATURE'S BLEND F1 MG PO (08:07)
[2020-07-11] MEDS ORDERED: VITAMIN D350 MC2 PO (08:07)
[2020-07-11] MEDS ORDERED: LATU40TA PO (10:02)
[2020-07-11] MEDS ORDERED: RIVASTIGMINE1 EAC2 T (10:02)
[2020-07-11] MEDS ORDERED: MEMANTINE HCL10 MG PO (10:02)
[2020-07-11] MEDS ORDERED: B121000 MCG/1 IM (10:02)
[2020-07-11] MEDS ORDERED: MIRTAZAPINE15 M2 PO (10:02)
== END 2020-07-11 13:31 | DRG 885 ==
LOC: 3N 16:22
PROVIDERS: Student in an Organized Health Care Education/Training Program; ADMIT Psychiatry & Neurology Psychiatry; ATTEND Psychiatry & Neurology Psychiatry
DX: F33.3 Major depressive disorder, recurrent, severe with psychotic symptoms (principal); N18.30 Chronic kidney disease, stage 3 unspecified; Z68.1 Body mass index [BMI] 19.9 or less, adult; E78.5 Hyperlipidemia, unspecified; B35.1 Tinea unguium; K76.0 Fatty (change of) liver, not elsewhere classified; K57.30 Diverticulosis of large intestine without perforation or abscess without bleeding; E53.8 Deficiency of other specified B group vitamins; G30.9 Alzheimer's disease, unspecified; F02.80 Dementia in other diseases classified elsewhere, unspecified severity, without behavioral disturbance, psychotic disturbance, mood disturbance, and anxiety; R62.7 Adult failure to thrive; E55.9 Vitamin D deficiency, unspecified; R73.03 Prediabetes; S51.812A Laceration without foreign body of left forearm, initial encounter; I12.9 Hypertensive chronic kidney disease with stage 1 through stage 4 chronic kidney disease, or unspecified chronic kidney disease; S51.811A Laceration without foreign body of right forearm, initial encounter; K57.90 Diverticulosis of intestine, part unspecified, without perforation or abscess without bleeding; I48.0 Paroxysmal atrial fibrillation; Z98.49 Cataract extraction status, unspecified eye; Z86.19 Personal history of other infectious and parasitic diseases; Z83.6 Family history of other diseases of the respiratory system; Z88.1 Allergy status to other antibiotic agents; Z88.0 Allergy status to penicillin; Z88.2 Allergy status to sulfonamides; Z88.8 Allergy status to other drugs, medicaments and biological substances; X58.XXXA Exposure to other specified factors, initial encounter; Y93.89 Activity, other specified; Y92.89 Other specified places as the place of occurrence of the external cause; Y99.8 Other external cause status

== ENCOUNTER 2020-12-22 21:00 | Emergency (ER) | payer MEDICARE, BC ==
[~2020-12-22 21:00] MED LIST changes: +B121000 MCG/1 IM; +LATU40TA PO; +MEMANTINE HCL10 MG PO; +MIRTAZAPINE15 M2 PO; +NATURE'S BLEND F1 MG PO; +RIVASTIGMINE1 EAC2 T; +VITAMIN D350 MC2 PO
[2020-12-22 21:38] LABS: BASO % 0.8 % (0.0-1.0); EOS # 0.2 10*3/uL (0.0-0.4); EOS % 3.6 % (1.0-4.0); HEMATOCRIT 31.4 % (37.0-47.0); LYMPH # 1.1 10*3/uL (1.3-4.4); LYMPH % 20.1 % (27.0-41.0); MEAN CELL VOLUME 93.5 fl (81.0-99.0); MEAN CORPUSCULAR HGB 28.6 pg (27.0-31.0); MEAN CORPUSCULAR HGB CONC 30.6 g/dl (33.0-37.0); MEAN PLATELET VOLUME 8.2 fl (9.6-12.3); MONO # 0.5 10*3/uL (0.1-1.0); NEUT # 3.4 10*3/uL (2.3-7.9); NEUT % 64.7 % (47.0-73.0); PLATELET COUNT AUTOMATED 293 10*3/uL (130-400); RED BLOOD COUNT 3.36 10*6/uL (4.10-5.10); RED CELL DISTRI WIDTH 23.9 % (0-14.5); WHITE BLOOD COUNT 5.3 10*3/uL (4.8-10.8)
[2020-12-22 21:54] LABS: ALBUMIN 2.4 gm/dl (3.1-4.5); CREATININE 1.08 mg/dL (0.55-1.02); POTASSIUM 4.4 mmol/L (3.5-5.1); TOTAL PROTEIN 6.7 gm/dL (6.4-8.2)
[2020-12-22 21:55] LABS: TROPONIN I 0.015 ng/ml (<0.045)
== END 2020-12-23 00:01 ==
LOC: ED 21:00
PROVIDERS: Physician Assistant
DX: S80.11XA Contusion of right lower leg, initial encounter (principal); W18.39XA Other fall on same level, initial encounter; Y93.89 Activity, other specified; Y92.89 Other specified places as the place of occurrence of the external cause; Y99.8 Other external cause status